=== PATIENT | female | born 1995 | race African-American/Black ===

== ENCOUNTER 2017-12-24 08:22 | Emergency (ER) | payer OTHER, BC ==
[~2017-12-24] VITALS: Ht 157.5 cm; Wt 85.0 kg
[~2017-12-24 08:22] MED LIST: Z.0.NO CURRENT MEDS; ZOFR4TAB3 SL
[2017-12-24 08:26] VITALS: BP 102/69; PULSE 82; RESP 16; TEMP 98.5; O2SAT 98
[2017-12-24] MEDS ORDERED: KETOROLAC TROMETHAMINE 60 MG/2 ML (IM) VIAL IM ONE (09:30)
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
[2017-12-24] MEDS ORDERED: IBUP-232 PO (11:31)
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
[2017-12-24 12:16] VITALS: BP 105/66
== END 2017-12-24 12:18 | disposition home or self-care (01) ==
LOC: NEPD 08:22
DX: S80.02XA Contusion of left knee, initial encounter (principal); S09.90XA Unspecified injury of head, initial encounter; M54.6 Pain in thoracic spine; M25.511 Pain in right shoulder; R06.02 Shortness of breath; Z87.820 Personal history of traumatic brain injury; V49.88XA Car occupant (driver) (passenger) injured in other specified transport accidents, initial encounter
CPT/HCPCS: 70450; 71046; 72125; 96372; 99284; J1885; L0150